=== PATIENT | female | born 1985 | race Two or more races ===

== ENCOUNTER 2018-09-03 07:31 | Inpatient (IN) | payer OTHER, SELFPAY ==
[2018-09-03 06:45] VITALS: BMI 29.9
[2018-09-03 07:20] LABS: ROM Internal Control Test YES-OK TO RESULT pt. (Internal QC)
[2018-09-03 07:22] LABS: ROM Patient Test POSITIVE (Negative)
[2018-09-03] MEDS: Lactated Ringers 1,000 ML 50 ML IV ×4 (08:17→22:59)
[2018-09-03 08:25] LABS: Hematocrit 37.8 % (37-47); Hemoglobin 12.6 g/dl (12.0-15.0); Mean Corp Hgb Conc 33.3 g/gl (32-36); Mean Corpuscular Hgb 28.3 pg (27.0-32.0); Mean Corpuscular Volume 84.9 fL (81-99); Mean Platelet Vol. 11.3 fl (6.2-12.0); Platelet Count 259 K/mm3 (150-450); RBC Distribution Width CV 15.2 % (11.6-14.6); RBC Distribution Width SD 47.1 fl (35.1-43.9); Red Blood Count 4.45 M/mm3 (4.2-5.4); White Blood Count 14.6 K/mm3 (4.4-11.0)
[2018-09-03 08:26] LABS: Scan Indicated on CBC? Y/N NO
--- NOTE | 2018-09-03 08:39 | PCM.HP.OB ---
- Problem List (1) Rupture of membranes with clear amniotic fluid Status: Acute History Date of Admission: 09/03/18 Final RACHNA: 09/09/18 Gestational age: 39 Weeks and 1 Days History of this : This is a 32 year-old, G [], P [], at weeks gestational age. Medical History: Medical History (Last Updated 09/03/18 @ 08:40 by Jayne Aguilar DO) Anemia D64.9 Allergies No Known Allergies Allergy (Verified 09/03/18 07:03) Home Medications: Home Medications Vits [Prenatabs FA] 1 tablet PO DAILY 09/03/18 Smoking Status: Never smoker Alcohol: None Number of Fetus(es): 1 Heart Tracing: Category 1 TOCO Analysis: Irritable History Past Pregnancies: Past Pregnancies Delivery Date Name GA/Weeks Outcome Route Weight Infant Gender Labor Length Anesthesia Delivery Location Provider FOB Labs: GBS neg, 1 hr GTT 63, Syphilis NR, UDS neg, quad screen neg, HepB neg, RI, HIV NR, Rh positive, Hgb 11.3, GC/CT neg Expected Delivery Method: Spontaneous Vaginal Review of Systems Gynecological: Reports: - - No ctx, vb. +SROM at 5 am. +FM Physical Exam General: Alert, No apparent distress HEENT: Atraumatic Lungs: - - No increased resp effort Abdomen: Soft, Non Tender, Gravid Extremities:: No edema Neurological: Neuro grossly intact Estimated gestational size: Appropriate for gestational size Presentation: Cephalic Cervix Dilation (cm): 2 - posterior Assessment/Plan All Active Problems Rupture of membranes with clear amniotic fluid (Acute) This is a 32 year-old, G1, P1, at 39 weeks gestational age who presents with SROM for clear fluid around 5am. - TAUS performed confirming vertex presentation - Will start pitocin for augmentation - GBS negative - Pt desires epidural - Pt prefers physician for care and delivery - Routine intrapartum care
[2018-09-03] MEDS: Oxytocin 30 units/NS 500 ml 30 UNITS/500 ML IV.SOLN IV (09:15)
[2018-09-03] MEDS: fentaNYL-bupivacaine (epidural) 100 ML BAG EPIDURAL ×3 (13:31→22:58)
--- NOTE | 2018-09-03 16:59 | PCM.PN.BLA ---
Progress Note At bedside to check on pt. FHT category 1. Swisher w/ ctx's q 4 min, not adequate at this point. Pit at 16 mu/min. Cvx 3/70/-3. Continue current management of PROM
[2018-09-03] MEDS: 0.9% Saline Lock 10 ML Syringe IV (21:45)
[2018-09-04] MEDS: Ondansetron 4 MG/2 ML Vial IV (03:11)
[2018-09-04] MEDS: Lactated Ringers 1,000 ML 50 ML IV ×4 (03:50→18:27)
[2018-09-04] MEDS: fentaNYL-bupivacaine (epidural) 100 ML BAG EPIDURAL ×3 (05:56→17:05)
--- NOTE | 2018-09-04 08:30 | PCM.PN.BLA ---
Progress Note At bedside to check pt. Cvx 8/100/0, asynclitic. Unchanged from 2 hour prior. Pit at 16 mu/min. Category 1 tracing. Ctx's palpate strong but IUPC with ctx's q 4 min that are not adequate. Will continue with position changes given that baby is asynclitic, and will continue to titrate Pitocin. Patient is exhausted and requesting a primary section. Pt does feel warm but remains afebrile with clear fluid. Discussed with patient that there are risks associated with a primary section. Will recheck in 2 hours and reassess.
[2018-09-04] MEDS: Oxytocin 30 units/NS 500 ml 30 UNITS/500 ML IV.SOLN IV (19:12)
[2018-09-04] MEDS: Oxytocin 30 units/NS 500 ml 30 UNITS/500 ML IV.SOLN 334 UNITS IV (19:35)
[2018-09-04] MEDS: Oxytocin 30 units/NS 500 ml 30 UNITS/500 ML IV.SOLN 167 UNITS IV (20:06)
--- NOTE | 2018-09-04 20:06 | PCM.OB.VAG ---
- Problem List (1) Rupture of membranes with clear amniotic fluid Status: Acute Vaginal Delivery Maternal Presentation: Spontaneous Rupture of Membranes Pt is a 32-year-old who presented at 39 weeks with PROM for clear fluid and cervix was 2 cm dilated. Pitocin was started given premature rupture of membranes. She progressed to complete. She was pushing for over 4 hours. Method of Induction: Pitocin Amniotic Membrane Rupture Type: Spontaneous at home Amniotic Fluid Description: Clear Final RACHNA: 09/09/18 Gestational age: 39 Weeks and 2 Days Date of Procedure: 09/04/18 Pre-Operative Diagnosis: PROM, 39 wk gestation, primip Post-Operative Diagnosis: As above Surgery/ Procedure Performed: Vacuum Assisted Vaginal Delivery Type of Anesthesia: Epidural Description of Procedure: Patient progressed to complete. She was pushing for well over 4 hours and pushed to +2 station. Risks, benefits, and alternatives of a vacuum-assisted delivery were discussed with the patient and her given no further progress was being made, as well as maternal exhaustion. The patient verbally consented for a vacuum-assisted vaginal delivery. The vacuum was placed and with 1 contraction gentle traction was placed while the patient pushed 3 times. There were no pop offs of the vacuum. After the 1 contraction the vacuum was released and removed. A Ritgen maneuver was then performed to assist with the remainder of the delivery. Head, anterior shoulder, posterior shoulder were delivered without force or delay. There was a loose nuchal cord x1. Viable male infant was placed on maternal abdomen. Cord was clamped and cut after 60 sec delay by father the baby. Cord blood was obtained for cord blood banking per the patient's request. Placenta was removed with fundal massage and noted to be intact with a three-vessel cord. Uterus was explored x1. EBL was 300 cc. She had a left vaginal sulcal tear and a second-degree perineal tear that were repaired in usual fashion with 3-0 Vicryl. Presentation: Vertex Placental Delivery Description: Expressed Cord Vessel Description: 3 Vessels Nuchal Cord Compression: Without compression Cord Entanglement: Around neck x 1, loose Drain: Boykin to straight drain Estimated Blood Loss: 300 Infant A gender: Male Episiotomy Description: None Laceration: Vaginal Extension/lac, 2nd degree Medications given after delivery: IV Pitocin
[2018-09-04] MEDS: Ibuprofen 600 MG Tablet PO (21:05)
[2018-09-05 00:05] VITALS: BP 101/53; PULSE 104; RESP 16; TEMP 36.9; O2SAT 99
[2018-09-05] MEDS: Acetaminophen 500 MG Tablet 1000 MG PO (02:35)
[2018-09-05 03:00] VITALS: BP 121/69; PULSE 104; RESP 16; TEMP 36.2; O2SAT 99
--- NOTE | 2018-09-05 08:05 | PN.OBGYN_ITS ---
Patient Problems: Active and Suspected Problems (Last Updated 09/03/18 @ 08:40 by Jayne Aguilar DO) Rupture of membranes with clear amniotic fluid (Acute) Subjective: Patient is doing well. She was sleeping upon entering room. Pain is well controlled. Lochia normal. She tolerated a regular diet last night without nausea or vomiting. She is ambulating and voiding without difficulty. Denies lightheadedness, chest pain, shortness of breath, leg pain. She is breast- feeding with some difficulty with latching. She is also pumping. She does not want control. - Physical Exam General: Alert, No apparent distress HEENT: Atraumatic Lungs: - - No increased resp effort Abdomen: Soft, Non Tender, - - FF@U Extremities: No edema, No Calf Tenderness Skin: No rashes Neurological: Neuro grossly intact Psych/Mental Status: Normal Affect, Appropriate Vital Signs Temp Pulse Resp BP Pulse Ox 97.1 F L 104 H 16 121/69 H 99 09/05/18 03:00 09/05/18 03:00 09/05/18 03:00 09/05/18 03:00 09/05/18 03:00 Oxygen Delivery Method Room Air Weight: 180 lb 1.883 oz Body Mass Index (BMI) 29.9 Intake and Output for Last 24 Hours 09/03/18 09/04/18 09/05/18 23:59 23:59 23:59 Intake Total 6337 / 6337 7252 / 7252 Output Total 3950 / 3950 5150 / 5150 450 / 450 Balance 2387 / 2387 2102 / 2102 -450 / -450 Medical Necessity - Tobacco Use Smoking Status: Never smoker Assessment/Plan All Active Problems (Last Updated 09/03/18 @ 08:40 by Jayne Aguilar DO) Rupture of membranes with clear amniotic fluid (Acute) PP day #1 s/p VAVD. - Pt doing well - with some difficulty with latching. to see today - Does not want control - Routine care - Dispo: She would like to stay another night. D/c home tomorrow
--- NOTE | 2018-09-05 08:05 | PCM.DCVAG ---
Discharge Diet: No Restrictions Discharge Activity: Return to Normal Activity, May Shower May resume sexual activity in: 6 weeks Weight Bearing Status: Full weight bearing Lifting Restrictions: None Call your doctor if you observe: Fever of 101 or Higher, Inability to urinate, Inability to have a bowel movement, Using more than one pad per hour, Shortness of breath, Chest pain, Increased palpitations (irregular heartbeat), Calf discomfort, Uncontrolled pain Cleanse incision/area with: Soap & Water Instructions: After a Vaginal Additional Instructions: If you experience any of the following, contact your healthcare provider. Bleeding that soaks a pad every hour for 2 hours Fever 100.4 or higher Unrelieved incision or abdominal pain Swelling, redness, discharge or bleeding from your incision or episiotomy site Your incision begins to separate Problems urinating (including inability to urinate or burning while urinating). Visual changes Severe headache Flu-like symptoms Pain or redness in one of both of your breasts Pain, warmth, tenderness or swelling in your legs, especially the calf area Frequent nausea and vomiting Symptoms of depression or anxiety If you experience any of the following, call 911 or go to the nearest Emergency Room. Chest pain Problems breathing Seizure activity Partial or complete paralysis of a body part, slurred speech, weakness or drooping of the face, or a sudden inability to walk or hold your balance Allergies/Adverse Reactions: Allergies No Known Allergies Allergy (Verified 09/03/18 07:03) Medications to take at Discharge Vits [Prenatabs FA] 1 tablet PO DAILY 09/03/18 When: In 4-6 weeks for visit. May also follow up in 1-2 weeks if you desire. Test Results: Test results from this visit will be discussed in further detail at your follow-up appointment, if applicable. Proposed Discharge Date: 09/06/18
--- NOTE | 2018-09-05 08:09 | DCINST_ITS ---
Discharge Diet: No Restrictions Discharge Activity: Return to Normal Activity, May Shower May resume sexual activity in: 6 weeks Weight Bearing Status: Full weight bearing Lifting Restrictions: None Call your doctor if you observe: Fever of 101 or Higher, Inability to urinate, Inability to have a bowel movement, Using more than one pad per hour, Shortness of breath, Chest pain, Increased palpitations (irregular heartbeat), Calf disco mfort, Uncontrolled pain Cleanse incision/area with: Soap & Water Instructions: After a Vaginal Additional Instructions: If you experience any of the following, contact your healthcare provider. * Bleeding that soaks a pad every hour for 2 hours * Fever 100.4 or higher * Unrelieved incision or abdominal pain * Swelling, redness, discharge or bleeding from your incision or episiotomy site * Your incision begins to separate * Problems urinating (including inability to urinate or burning while u rinating). * Visual changes * Severe headache * Flu-like symptoms * Pain or redness in one of both of your breasts * Pain, warmth, tenderness or swelling in your legs, especially the calf area * Frequent nausea and vomiting * Symptoms of depression or anxiety If you experience any of the following, call 911 or go to the nearest Emergency Room. * Chest pain * Problems breathing * Seizure activity * Partial or complete paralysis of a body part, slurred speech, weakness or drooping of the face, or a sudden inability to walk or hold your balance Allergies/Adverse Reactions: Allergies No Known Allergies Allergy (Verified 09/03/18 07:03) Medications to take at Discharge Vits [Prenatabs FA] 1 tablet PO DAILY 09/03/18 When: In 4-6 weeks for visit. May also follow up in 1-2 weeks if you desire. Test Results: Test results from this visit will be discussed in further detail at your follow- up appointment, if applicable. Proposed Discharge Date: 09/06/18
[2018-09-05 08:30] VITALS: BP 105/57; PULSE 93; RESP 16; TEMP 36.6; O2SAT 98
[2018-09-05] MEDS: Ibuprofen 600 MG Tablet PO ×2 (10:40→18:26)
[2018-09-05] MEDS: Prenatal Vits Tablet 1 TABLET PO (10:41)
[2018-09-05 12:00] VITALS: BP 109/66; PULSE 116; RESP 16; TEMP 36.5; O2SAT 98
[2018-09-05 16:05] VITALS: BP 102/45; PULSE 107; RESP 14; TEMP 37.1; O2SAT 98
--- NOTE | 2018-09-05 16:05 | NURSING ---
baby's blood sugar 41. Dr. Villeda notified. favian completed. will supplement with 15cc formula. family verbalized understanding. instruction and demonstration of how to feed baby using ruiz cup provided.
[2018-09-05 20:30] VITALS: BP 129/83; PULSE 103; RESP 16; TEMP 36.7; O2SAT 100
[2018-09-06 01:45] VITALS: BP 90/69; PULSE 104; RESP 16; TEMP 36.7; O2SAT 99
[2018-09-06] MEDS: Ibuprofen 600 MG Tablet PO ×3 (01:51→15:07)
[2018-09-06] MEDS: Senna/Docusate Sodium 1 Tablet PO (08:03)
[2018-09-06] MEDS: Hydrocortisone 2.5% Crm 1 APPLIC TOPICAL (08:06)
[2018-09-06] MEDS: Dibucaine 30 GM Tube 1 APPLIC TOPICAL (08:09)
--- NOTE | 2018-09-06 08:11 | PCM.PN.OB ---
Patient Problems: Active and Suspected Problems (Last Updated 09/03/18 @ 08:40 by Jayne Aguilar DO) Rupture of membranes with clear amniotic fluid (Acute) Subjective: Pt doing well. Having cramping that is controlled with Motrin. Lochia normal. Denies lightheadedness, dizziness, CP, SOB, leg pain. Ambulating and voiding without difficulty. She feels ready to go home. - Physical Exam General: Alert, No apparent distress HEENT: Atraumatic Lungs: - - No increased resp effort Abdomen: Soft, Non Tender, - - FF@U-1 Extremities: No edema, No Calf Tenderness Skin: No rashes Neurological: Neuro grossly intact Psych/Mental Status: Normal Affect, Appropriate Vital Signs Temp Pulse Resp BP Pulse Ox 98.0 F 104 H 16 90/69 99 09/06/18 01:45 09/06/18 01:45 09/06/18 01:45 09/06/18 01:45 09/06/18 01:45 Oxygen Delivery Method Room Air Weight: 180 lb 1.883 oz Body Mass Index (BMI) 29.9 Intake and Output for Last 24 Hours 09/04/18 09/05/18 09/06/18 23:59 23:59 23:59 Intake Total 7252 / 7252 Output Total 5150 / 5150 450 / 450 Balance 2102 / 2102 -450 / -450 Medical Necessity - Tobacco Use Smoking Status: Never smoker Assessment/Plan All Active Problems (Last Updated 09/03/18 @ 08:40 by Jayne Aguilar DO) Rupture of membranes with clear amniotic fluid (Acute) PP day #2 s/p VAVD. - Doing well and feels ready to go home - - Declines BC at this time - Dispo: D/c home. Reviewed discharge instructions and follow up w/ pt
[2018-09-06 10:00] VITALS: BP 100/40; PULSE 90; RESP 16; TEMP 36.7
--- NOTE | 2018-09-06 14:58 | NURSING ---
1400 States she wants to go home today and feels able to care for herself and her baby.
[2018-09-06] MEDS: Prenatal Vits Tablet 1 TABLET PO (15:08)
[2018-09-06 18:00] VITALS: BP 128/72; PULSE 120; RESP 16; TEMP 36.4; O2SAT 99
== END 2018-09-06 18:10 | disposition home or self-care (01) | DRG 807 ==
LOC: WPOUT 07:32
PROVIDERS: Advanced Practice Midwife; Admitting Provider Obstetrics & Gynecology; Referring Provider Obstetrics & Gynecology; Visit Provider Obstetrics & Gynecology
DX: O75.81 Maternal exhaustion complicating labor and delivery (principal); Z37.0 Single live birth; O42.92 Full-term premature rupture of membranes, unspecified as to length of time between rupture and onset of labor; O69.81X0 Labor and delivery complicated by cord around neck, without compression, not applicable or unspecified; O70.1 Second degree perineal laceration during delivery; Z3A.39 39 weeks gestation of pregnancy
CPT/HCPCS: 59025; 59050; 84112; 85027; 86850; 86900; 99218; J7120; A4216; G0378; J2405; J3490